=== PATIENT | female | born 1935 | race Caucasian/White ===

== ENCOUNTER → 2016-11-23 | Outpatient (CLI) | payer MEDICARE, OTHER ==
[~2016-11-23] MED LIST: AMBIEN 10MG10 MG PO; AMBIEN 5MG TABLE5 MG PO; BACTRIM DS 8001 TAB PO; CALCIUM 600600 MG PO; CALCIUM600 M1 PO; COLACE 100100 MG/CAP; COLACE 100100 MG/CAP PO; CYMBALTA 20MG20 MG PO; DIFLUCAN200 MG PO; ETODOLAC; GLUCOSAMINE & C1 CA2 PO; INDERAL 10MG10 MG; INDERAL40 MG PO; ISOPTO ATROPINE15 ML SL; LEVAQUIN 5500 MG/TA1 PO; NORCO 325 MG-51 TAB; PERCOCET 325 MG1 TA2 PO; PERCOCET 5/321 UDTAB PO; PREDNISONE 2.52.5 MG PO; PREDNISONE 5MG5 MG; PREDNISONE 5MG5 MG PO; PRILOSEC10 MG; PROTONIX 40MG T40 MG PO; ROBINUL1 MG PO; TRANSDERM-0.5 MG/21 TD; TYLENOL 8 HR PO; TYLENOL ARTHRI650 M1 PO; VALIUM 5MG T5 MG/TAB PO; ZOFRAN8 MG PO; ZOLOFT 50MG50 MG PO; ZOVIRAX400 MG; ZOVIRAX400 MG PO; ZYLOPRIM 300MG300 MG PO
[2016-11-23 12:17] LABS: BASO % 0.3 % (0.0-2.0); GRAN # 4.1 (1.4-6.5); GRAN % 68.3 % (42.2-75.2); HEMATOCRIT 43.4 % (37.0-47.0); HEMOGLOBIN 14.2 g/dl (12.5-16.0); LYMPH % 16.9 % (20.0-51.0); MEAN CELL VOLUME 89 fl (80.0-100.0); MEAN CORPUSCULAR HEMOGLOBIN 29 pg (27.0-31.0); MEAN CORPUSCULAR HGB CONC 33 g/dl (33.0-37.0); MEAN PLATELET VOLUME 11.9 fl (7.4-10.4); MONO # 0.8 (0.1-0.6); MONO % 13.7 % (1.7-9.3); RED BLOOD COUNT 4.86 M/mm3 (4.10-5.30); REDCELL DISTRIBUTION WIDTH-CV 14.2 % (11.5-14.5); WHITE BLOOD COUNT 6.1 K/mm3 (4.8-10.8)
[2016-11-23 12:31] LABS: INR 1.1 (0.8-3.0); PROTHROMBIN TIME 11.9 SECONDS (9.7-12.8)
== END ==
LOC: COL.LAB 11:11
PROVIDERS: Internal Medicine Gastroenterology
DX: R63.3 Feeding difficulties (principal); Z85.038 Personal history of other malignant neoplasm of large intestine; R13.12 Dysphagia, oropharyngeal phase

== ENCOUNTER 2016-11-26 07:07 | Observation (INO) | payer MEDICARE, OTHER ==
[~2016-11-26] VITALS: Ht 167.6 cm; Wt 58.8 kg
[2016-11-26] VITALS (11 sets, daily range): BP systolic 119–151; BP diastolic 40–81; PULSE 50–105; TEMP 98.1–99.9
[2016-11-26] MEDS ORDERED: ROBINUL1 MG PO (08:27)
[2016-11-26] MEDS ORDERED: COLACE 100100 MG/CAP PO (08:34)
[2016-11-26] MEDS ORDERED: TYLENOL 8 HR PO (08:44)
[2016-11-26 12:32] LABS: GRAN # 5.7 (1.4-6.5); GRAN % 84.8 % (42.2-75.2); HEMATOCRIT 41.3 % (37.0-47.0); HEMOGLOBIN 13.2 g/dl (12.5-16.0); LYMPH # 0.7 (1.2-3.4); MEAN CELL VOLUME 91 fl (80.0-100.0); MEAN CORPUSCULAR HEMOGLOBIN 29 pg (27.0-31.0); MEAN CORPUSCULAR HGB CONC 32 g/dl (33.0-37.0); MEAN PLATELET VOLUME 11.1 fl (7.4-10.4); MONO # 0.3 (0.1-0.6); MONO % 4.8 % (1.7-9.3); RED BLOOD COUNT 4.56 M/mm3 (4.10-5.30); REDCELL DISTRIBUTION WIDTH-CV 14.5 % (11.5-14.5); WHITE BLOOD COUNT 6.7 K/mm3 (4.8-10.8)
[2016-11-26 12:44] LABS: INR 1.1 (0.8-3.0); PROTHROMBIN TIME 12.6 SECONDS (9.7-12.8)
[2016-11-26 12:45] LABS: PLATELET COUNT 113 K/mm3 (130-400)
[2016-11-27 02:50] VITALS: BP 109/47; PULSE 76; TEMP 98.1
[2016-11-27 07:13] VITALS: BP 147/46; PULSE 65; TEMP 97.9
[2016-11-27 09:38] VITALS: BP 121/46; PULSE 53; TEMP 98.2
== END 2016-11-27 12:28 | disposition home health service (06) ==
LOC: SDCO 07:07 → SURG 07:21 → SDCO 08:30 → SURG 10:27 → SDCO 10:27 → SURG 11-27 12:28
PROVIDERS: Internal Medicine Gastroenterology
DX: G12.21 Amyotrophic lateral sclerosis (principal); R47.1 Dysarthria and anarthria; R13.10 Dysphagia, unspecified; K29.30 Chronic superficial gastritis without bleeding; E11.9 Type 2 diabetes mellitus without complications; M17.0 Bilateral primary osteoarthritis of knee; G47.00 Insomnia, unspecified; M47.9 Spondylosis, unspecified; M35.3 Polymyalgia rheumatica; Z85.038 Personal history of other malignant neoplasm of large intestine
CPT/HCPCS: G0378; G0379; G8996-GN; G8997-GN; J0690; J1720; J2250; J2704; J7030; J7120; J7512

== ENCOUNTER 2018-01-01 09:00 | Outpatient (RCR) | payer MEDICARE | END 2018-04-01 | disposition home or self-care (01) | LOC: WSST | DX: R47.1 Dysarthria and anarthria (principal); G12.21 Amyotrophic lateral sclerosis | CPT/HCPCS: G8996-GN; G8997-GN ==

== ENCOUNTER → 2018-01-07 | Outpatient (CLI) | payer MEDICARE, OTHER | LOC: COL.RAD 08:30 | DX: R13.10 Dysphagia, unspecified (principal); G12.21 Amyotrophic lateral sclerosis; R47.1 Dysarthria and anarthria ==

== ENCOUNTER 2018-05-31 21:22 | Emergency (ER) | payer MEDICARE ==
[~2018-05-31] VITALS: Ht 165.1 cm; Wt 55.5 kg
[~2018-05-31 21:22] MED LIST changes: +AMITRIPTYLINE H25 M1 PO
[2018-05-31 21:29] VITALS: PULSE 64
[2018-05-31] MEDS ORDERED: OSCAL 500 TAB500 MG PO (21:43)
[2018-05-31] MEDS ORDERED: CEPHALEXIN500 M1 PO (22:57)
[2018-05-31 23:15] VITALS: BP 158/68
== END 2018-05-31 23:15 | disposition home or self-care (01) ==
LOC: COL.ER 21:22
DX: S09.90XA Unspecified injury of head, initial encounter (principal); S01.01XA Laceration without foreign body of scalp, initial encounter; Z23 Encounter for immunization; W18.39XA Other fall on same level, initial encounter; Y92.009 Unspecified place in unspecified non-institutional (private) residence as the place of occurrence of the external cause

== ENCOUNTER → 2018-07-02 | Outpatient (CLI) | payer MEDICARE, OTHER ==
[~2018-07-02] MED LIST changes: +CEPHALEXIN500 M1 PO; +OSCAL 500 TAB500 MG PO
== END ==
LOC: COL.RAD 11:54
DX: S02.81XA Fracture of other specified skull and facial bones, right side, initial encounter for closed fracture (principal); M47.812 Spondylosis without myelopathy or radiculopathy, cervical region; G12.21 Amyotrophic lateral sclerosis; I65.23 Occlusion and stenosis of bilateral carotid arteries; E04.1 Nontoxic single thyroid nodule; W19.XXXA Unspecified fall, initial encounter; Z95.828 Presence of other vascular implants and grafts

== ENCOUNTER → 2018-11-20 | Outpatient (CLI) | payer MEDICARE, OTHER ==
[2018-11-20 18:26] LABS: COLLECTION METHOD CLEAN CATCH
[2018-11-20 19:11] LABS: AMORPHOUS CRYSTAL Present /uL; PH 7 (5-8); SQUAMOUS EPITHELIAL 0-2 /hpf; URINE APPEARANCE Hazy; URINE BACTERIA None Seen /hpf; URINE BILIRUBIN Negative (NEGATIVE); URINE BLOOD Negative (NEGATIVE); URINE COLOR Yellow; URINE GLUCOSE Negative (NEGATIVE); URINE KETONE Negative (NEGATIVE); URINE LEUKOCYTE ESTERASE Negative (NEGATIVE); URINE NITRATE Negative (NEGATIVE); URINE PROTEIN(semi-quant) Negative (NEGATIVE); URINE UROBILINOGEN Negative (NEGATIVE)
== END ==
LOC: ZCOL.LAB 17:30
PROVIDERS: Family Medicine
DX: Z01.89 Encounter for other specified special examinations (principal)

== ENCOUNTER → 2018-12-03 | Outpatient (CLI) | payer MEDICARE | LOC: COL.RAD 13:39 | DX: M19.011 Primary osteoarthritis, right shoulder (principal); S22.080A Wedge compression fracture of T11-T12 vertebra, initial encounter for closed fracture; M50.31 Other cervical disc degeneration, high cervical region; M51.36 Other intervertebral disc degeneration, lumbar region ==

== ENCOUNTER 2019-01-02 08:10 | Inpatient (IN) | payer MEDICARE ==
[~2019-01-02] VITALS: Ht 162.6 cm; Wt 62.3 kg
[2019-01-02] VITALS (215 sets, daily range): BP systolic 102–124; BP diastolic 55–70; PULSE 106–118; TEMP 98.1; O2SAT 88–100
[2019-01-02] MEDS ORDERED: TYLENOL SU650 MG/SUP RC (08:52)
[2019-01-02] MEDS ORDERED: ASPERCREME85G TP (09:08)
[2019-01-02] MEDS ORDERED: BUSPIRONE HCL7.5 MG PO (09:09)
[2019-01-02] MEDS ORDERED: DULCOLAX S10 MG/SUPP RC (09:09)
[2019-01-02] MEDS ORDERED: SILACE150 MG/15 PEG ×2 (09:11)
[2019-01-02] MEDS ORDERED: IMODIUM 2MG CAPS2 MG PO (09:15)
[2019-01-02] MEDS ORDERED: GOOD NEIGH1200 MG/15 PEG (09:16)
[2019-01-02] MEDS ORDERED: KEPPRA250 MG PO (09:16)
[2019-01-02] MEDS ORDERED: MIRALAX PA17 GM/Dose PEG (09:17)
[2019-01-02] MEDS ORDERED: ALMACONE 360 M360 ML PEG (09:17)
[2019-01-02] MEDS ORDERED: INDERAL40 MG PO (09:18)
[2019-01-02] MEDS ORDERED: ZOLOFT 100MG100 MG PO (09:18)
[2019-01-02] MEDS ORDERED: PREDNISONE 2.52.5 MG PO (09:18)
[2019-01-02] MEDS ORDERED: DESYREL 50MG50 MG PO (09:19)
[2019-01-02] MEDS ORDERED: TYLENOL 325MG325 MG PO (09:19)
[2019-01-02 09:26] LABS: HEMATOCRIT 41.9 % (37.0-47.0); HEMOGLOBIN 14.5 g/dl (12.5-16.0); MEAN CELL VOLUME 84 fl (80.0-100.0); MEAN CORPUSCULAR HEMOGLOBIN 29 pg (27.0-31.0); MEAN CORPUSCULAR HGB CONC 35 g/dl (33.0-37.0); MEAN PLATELET VOLUME 13.1 fl (7.4-10.4); RED BLOOD COUNT 5.02 M/mm3 (4.10-5.30); REDCELL DISTRIBUTION WIDTH-CV 14.9 % (11.5-14.5)
[2019-01-02 09:28] LABS: PLATELET COUNT 287 K/mm3 (130-400)
[2019-01-02 09:34] LABS: ALBUMIN 3.8 gm/dL (3.5-5.0); BILIRUBIN,TOTAL 0.9 mg/dL (0.0-1.0); CALCIUM 9.5 mg/dL (8.4-10.2); CREATININE, serum 0.52 mg/dL (0.52-1.25); MAGNESIUM 1.7 mg/dL (1.6-2.3); POTASSIUM 4.2 mmol/L (3.4-5.0); TOTAL PROTEIN 7.1 gm/dL (6.4-8.2)
[2019-01-02 09:46] LABS: COLLECTION METHOD CLEAN CATCH
[2019-01-02 09:46] LABS: TROPONIN-I 0.019 ng/mL (0.000-0.035)
[2019-01-02 09:55] LABS: BAND 1 % (0-10); LYMPHOCYTE 4 % (20.0-51.0); METAMYELOCYTE 1 % (0-0); NEUTROPHILS 79 % (42.0-75.2); PLATELET ESTIMATE NORMAL (NORMAL)
[2019-01-02 10:08] LABS: MUCOUS Present /lpf; PH 5 (5-8); SQUAMOUS EPITHELIAL None Seen /hpf; URINE APPEARANCE Clear; URINE BACTERIA None Seen /hpf; URINE BILIRUBIN Negative (NEGATIVE); URINE BLOOD Negative (NEGATIVE); URINE COLOR Amber; URINE GLUCOSE Negative (NEGATIVE); URINE KETONE Negative (NEGATIVE); URINE LEUKOCYTE ESTERASE Negative (NEGATIVE); URINE NITRATE Negative (NEGATIVE); URINE PROTEIN(semi-quant) 2+ (NEGATIVE); URINE UROBILINOGEN >=4.0 mg/dL (NEGATIVE)
[2019-01-02 12:44] LABS: GASTROCCULT POSITIVE; pH GASTRIC CONTENTS 4
[2019-01-02 15:10] LABS: HEMATOCRIT 37.2 % (37.0-47.0); MEAN CELL VOLUME 86 fl (80.0-100.0); MEAN CORPUSCULAR HGB CONC 34 g/dl (33.0-37.0); MEAN PLATELET VOLUME 12.2 fl (7.4-10.4); RED BLOOD COUNT 4.33 M/mm3 (4.10-5.30); REDCELL DISTRIBUTION WIDTH-CV 15.1 % (11.5-14.5)
[2019-01-02 15:15] LABS: HEMOGLOBIN 12.5 g/dl (12.5-16.0); MEAN CORPUSCULAR HEMOGLOBIN 29 pg (27.0-31.0)
[2019-01-02 15:16] LABS: PLATELET COUNT 31 K/mm3 (130-400)
[2019-01-02 15:40] LABS: BASO % 0.1 % (0.0-2.0); EOS # 0.4 (0.0-0.7); EOS % 1.9 % (0-4.0); GRAN # 17.7 (1.4-6.5); GRAN % 75.2 % (42.2-75.2); HEMATOCRIT 38.6 % (37.0-47.0); HEMOGLOBIN 13.1 g/dl (12.5-16.0); LYMPH # 1.2 (1.2-3.4); LYMPH % 5.1 % (20.0-51.0); MEAN CELL VOLUME 85 fl (80.0-100.0); MEAN CORPUSCULAR HEMOGLOBIN 29 pg (27.0-31.0); MEAN CORPUSCULAR HGB CONC 34 g/dl (33.0-37.0); MEAN PLATELET VOLUME 10.7 fl (7.4-10.4); MONO # 3.8 (0.1-0.6); MONO % 16.3 % (1.7-9.3); RED BLOOD COUNT 4.54 M/mm3 (4.10-5.30); REDCELL DISTRIBUTION WIDTH-CV 15.2 % (11.5-14.5)
[2019-01-02 15:49] LABS: PLATELET COUNT 34 K/mm3 (130-400)
[2019-01-02 17:02] LABS: INR 1.1 (0.8-3.0)
[2019-01-02 17:04] LABS: PARTIAL THROMBOPLASTIN TIME 27.1 SECONDS (26.0-37.0)
[2019-01-02 17:16] LABS: ARTERIAL BLD GAS TCO2 CT 24.5; ARTERIAL BLOOD GAS BASE EXCESS 0.5 (-2-2); ARTERIAL BLOOD GAS HCO3 23.5 meq/L (22-26); ARTERIAL BLOOD GAS pH 7.47 (7.35-7.45)
[2019-01-02 17:17] LABS: ARTERIAL BLOOD GAS PO2 157.9 mmHg (80-100)
[2019-01-02] MEDS ORDERED: ZOFRAN 4MG T4 MG/TAB PEG (18:35)
--- NOTE | 2019-01-02 19:30 | NUR ---
REPORT RECEIVED AT BEDSIDE FROM FLAQUITA MENDEZ. LINES AND MEDS REVIEWED.
--- NOTE | 2019-01-02 20:00 | NUR ---
SEIZURE PADS AND SCDS ON. PERIPHERAL IV DISCONTINUED PT HAS ERIC PICC LINE.
--- NOTE | 2019-01-02 22:00 | NUR ---
PT OFF OF OXYGEN AND NOW AT ROOM AIR. O2 SAT AT 100%. NO SIGNS OF DISTRESS NOTED.
[2019-01-02 22:09] LABS: HEMOGLOBIN 11.9 g/dl (12.5-16.0); MEAN CELL VOLUME 86 fl (80.0-100.0); MEAN CORPUSCULAR HEMOGLOBIN 29 pg (27.0-31.0); MEAN CORPUSCULAR HGB CONC 34 g/dl (33.0-37.0); MEAN PLATELET VOLUME 11.8 fl (7.4-10.4); PLATELET COUNT 79 K/mm3 (130-400); RED BLOOD COUNT 4.11 M/mm3 (4.10-5.30); REDCELL DISTRIBUTION WIDTH-CV 15.3 % (11.5-14.5)
[2019-01-02 22:11] LABS: HEMATOCRIT 35.2 % (37.0-47.0)
--- NOTE | 2019-01-02 22:40 | NUR ---
DR. BELL UPDATED BY THIS RN VIA PHONE CALL. PT'S PLATELETS BACK TO 79 FROM [phone]. NO NEW ORDERS RECEIVED AT THIS TIME, WILL CONTINUE TO MONITOR.
[2019-01-03] VITALS (390 sets, daily range): BP systolic 109–145; BP diastolic 42–66; PULSE 81–97; TEMP 97.4–98.9; O2SAT 72–100
[2019-01-03 05:32] LABS: HEMATOCRIT 28.6 % (37.0-47.0); MEAN CELL VOLUME 88 fl (80.0-100.0); MEAN CORPUSCULAR HEMOGLOBIN 29 pg (27.0-31.0); MEAN CORPUSCULAR HGB CONC 33 g/dl (33.0-37.0); RED BLOOD COUNT 3.25 M/mm3 (4.10-5.30); REDCELL DISTRIBUTION WIDTH-CV 15.3 % (11.5-14.5)
[2019-01-03 05:35] LABS: HEMOGLOBIN 9.5 g/dl (12.5-16.0)
--- NOTE | 2019-01-03 05:36 | NUR ---
RECEIVED A CRITICAL LAB VALUE, PLATELET AT 48. E CARE NOTIFIED. NO NEW ORDERS AT THIS TIME.
[2019-01-03 05:38] LABS: ALBUMIN 2.6 gm/dL (3.5-5.0); BILIRUBIN,TOTAL 0.4 mg/dL (0.0-1.0); CALCIUM 8.1 mg/dL (8.4-10.2); CREATININE, serum 0.44 mg/dL (0.52-1.25); MAGNESIUM 1.8 mg/dL (1.6-2.3); POTASSIUM 3.3 mmol/L (3.4-5.0); TOTAL PROTEIN 5.1 gm/dL (6.4-8.2)
--- NOTE | 2019-01-03 07:30 | NUR ---
INITIAL ASSESSMENT COMPLETED. PATIENT'S EYES ARE OPEN IN BED AND SHE CAN ANSWER SIMPLE YES/NO QUESTIONS.
[2019-01-03 08:48] LABS: PLATELET COUNT 143 K/mm3 (130-400)
--- NOTE | 2019-01-03 09:45 | NUR ---
PEG TUBE DISCONNECTED FROM DEPENDENT DRAIN PER DR. JONES ORDERS. RESIDUAL WILL BE CHECKED EVERY 4 HOURS.
[2019-01-03 09:49] LABS: BAND 2 % (0-10); LYMPHOCYTE 26 % (20.0-51.0); NEUTROPHILS 65 % (42.0-75.2); PLATELET ESTIMATE DECREASED (NORMAL)
[2019-01-03 13:33] LABS: MEAN CELL VOLUME 88 fl (80.0-100.0); MEAN CORPUSCULAR HGB CONC 33 g/dl (33.0-37.0); MEAN PLATELET VOLUME 11.2 fl (7.4-10.4); RED BLOOD COUNT 3.24 M/mm3 (4.10-5.30); REDCELL DISTRIBUTION WIDTH-CV 15.5 % (11.5-14.5)
[2019-01-03 13:45] LABS: HEMATOCRIT 28.6 % (37.0-47.0); HEMOGLOBIN 9.5 g/dl (12.5-16.0); MEAN CORPUSCULAR HEMOGLOBIN 29 pg (27.0-31.0); PLATELET COUNT 142 K/mm3 (130-400)
--- NOTE | 2019-01-03 14:50 | NUR ---
NO RESIDUAL NOTED TO PEG TUBE.
--- NOTE | 2019-01-03 15:00 | NUR ---
REPORT CALLED TO FLAQUITA MORELOS ON SURGICAL. PATIENT WILL BE TAKEN BY BED TO ROOM 344.
--- NOTE | 2019-01-03 15:31 | NUR ---
Plan is to return to [facility] unless otherwise specified by Dr. VENUS louie with family while patient slept. Family reports that the patient uses a motorized wheel chair. PCP is Dr. Velez. Medications obtained through [facility]. Will continue to follow.
--- NOTE | 2019-01-03 16:52 | NUR ---
Pt was transfered to room 344 from ICU. She is alert and non-verbal, uses whiteboard for communication. She denies pain. IVF are infusing into right upper arm PICC line. Roberts cath to DD noted. Pt was oriented to room and to staff. Call light is within reach. Bed alarm on.
[2019-01-04] VITALS: BP 112/46; PULSE 71; TEMP 98
[2019-01-04 04:32] VITALS: BP 131/62; PULSE 84; TEMP 98.6
--- NOTE | 2019-01-04 05:40 | NUR ---
Patient has rested intermittently overnight. Patient is alert and partially oriented, has required reorientation overnight, appears to reorient easily. PEG tube residual checks continue to return 0ml with Q4 checks. Patient has had no nausea, did require a PRN pain medicaiton dose overnight. IVF continue to infuse per order. Roberts catheter remains in place. No further needs at this time, call light within reach.
[2019-01-04 07:27] LABS: BASO % 0.1 % (0.0-2.0); EOS # 0.1 (0.0-0.7); EOS % 0.9 % (0-4.0); GRAN # 3.6 (1.4-6.5); GRAN % 52.7 % (42.2-75.2); LYMPH % 29.8 % (20.0-51.0); MEAN CELL VOLUME 89 fl (80.0-100.0); MEAN CORPUSCULAR HGB CONC 32 g/dl (33.0-37.0); MEAN PLATELET VOLUME 10.5 fl (7.4-10.4); MONO % 15.2 % (1.7-9.3); RED BLOOD COUNT 2.79 M/mm3 (4.10-5.30); REDCELL DISTRIBUTION WIDTH-CV 15.4 % (11.5-14.5)
[2019-01-04 07:40] LABS: HEMATOCRIT 24.9 % (37.0-47.0); MEAN CORPUSCULAR HEMOGLOBIN 29 pg (27.0-31.0)
[2019-01-04 07:41] LABS: PLATELET COUNT 128 K/mm3 (130-400)
[2019-01-04 07:48] LABS: CREATININE, serum 0.4 mg/dL (0.52-1.25)
[2019-01-04 07:50] LABS: POTASSIUM 2.8 mmol/L (3.4-5.0)
--- NOTE | 2019-01-04 08:29 | NUR ---
Pt is awake and alert, slightly confused. She is non-verbal and communicates via white boards. IVF are infusing into right upper arm PICC line. Roberts cath draining clear yellow urine without difficulty. PEG tube had 10 mL of light-green gastric fluid residual. Oral care provided. Repositioned at this time. Bed alarm on.
[2019-01-04 08:31] VITALS: BP 117/67; PULSE 71; TEMP 98.1
--- NOTE | 2019-01-04 11:48 | NUR ---
Pt was given PRN tylenol suppository for generalized aches and pains. Medications restarted and given per PEG tube without difficulty. Pt also repositioned at this time. Family at bedside, updated on plan of care by Dr. Page.
[2019-01-04 12:21] VITALS: BP 120/51; PULSE 70; TEMP 97.9
--- NOTE | 2019-01-04 16:00 | NUR ---
Tube feeds started at this time per PEG. Original order for bolus feedings TID, but Osmolite is only availabe in continuous feeding bottle. denise Montenegro notified and confirmed this was okay. Feedings started at 15 ml/hr.
[2019-01-04 16:27] VITALS: BP 112/33; PULSE 73; TEMP 98.9
--- NOTE | 2019-01-04 17:41 | NUR ---
Pt's blood sugar found to be 60. Pt still awake and alert, conversing via whiteboard. Pt was given dextrose via IV push per hypoglycemic protocol. Will reassess blood sugar
--- NOTE | 2019-01-04 18:23 | NUR ---
Blood sugar rechecked, 125
[2019-01-04 19:46] VITALS: BP 126/54; PULSE 76; TEMP 98.8
--- NOTE | 2019-01-04 20:00 | NUR ---
Patient in bed resting. Awake and alert. Communicates via white board. IV fluids infusing via pump to ERIC PICC. PICC without complications. Tube feeding infusing via pump. Residual of 5ml of davis fluid. Medications administered via PEG tube. Patient repositioned. Denies further needs at this time.
[2019-01-05 00:04] VITALS: BP 138/46; PULSE 67; TEMP 98.1
[2019-01-05 03:41] VITALS: BP 168/61; PULSE 77; TEMP 98.4
--- NOTE | 2019-01-05 05:58 | NUR ---
Patient has rested intermittently through the night. Passing gas this AM. Roberts maintained to dependent drainage with clear yellow urine present. Intermittently confused. Communication via whiteboard. Patient refuses to wear SCDs through the night. PEG tube with 5ml of davis residual this AM. Tube feeding through the night with kangaroo pump. PICC to ERIC without complications. Will report off to day shift. Bed alarm on, call light in reach.
[2019-01-05 06:20] LABS: MEAN CELL VOLUME 88 fl (80.0-100.0); MEAN CORPUSCULAR HGB CONC 33 g/dl (33.0-37.0); MEAN PLATELET VOLUME 10.8 fl (7.4-10.4); RED BLOOD COUNT 3.09 M/mm3 (4.10-5.30); REDCELL DISTRIBUTION WIDTH-CV 14.9 % (11.5-14.5)
[2019-01-05 06:23] LABS: HEMATOCRIT 27.1 % (37.0-47.0); HEMOGLOBIN 8.9 g/dl (12.5-16.0); MEAN CORPUSCULAR HEMOGLOBIN 29 pg (27.0-31.0)
[2019-01-05 06:28] LABS: PLATELET COUNT 122 K/mm3 (130-400)
[2019-01-05 06:36] LABS: CALCIUM 8.3 mg/dL (8.4-10.2); CREATININE, serum 0.36 mg/dL (0.52-1.25); POTASSIUM 3.4 mmol/L (3.4-5.0)
[2019-01-05 07:20] LABS: EOSINOPHIL 2 % (0-4); LYMPHOCYTE 29 % (20.0-51.0); MYELOCYTE 2 % (0-0); NEUTROPHILS 55 % (42.0-75.2); PLATELET ESTIMATE NORMAL (NORMAL)
[2019-01-05 08:55] VITALS: BP 117/43; PULSE 56; TEMP 97.6
--- NOTE | 2019-01-05 09:49 | NUR ---
Patient has been restless in bed. Drake Gaspar & this nurse provided full bed bath, linen chamged, oral care, lai care. Patient seemed to rest comfortably for a little while lying on her right side. She appears restless again at this time, try to comfort her and communicate using her white board. Picc to RUE-Iv antibioitcs & k+ replacement per orders. She does not like wearing the Scds. She remains NPo. When asked about nausea she shakes head no. Her abdomen soft, but distended. Peg tube feedings per orders, spoke with Moni engle to confirm & verify. New gauze dressing to Peg tube & cleanses around the site. minmal gastric return noted when given her meds crushed through tube. Will monitor closely.
--- NOTE | 2019-01-05 11:28 | NUR ---
Patient continues to be restless. Patient repositioned again & oral care provided. Tylenol suppository to try and provided any pain relief
[2019-01-05 11:31] VITALS: BP 116/76; PULSE 61; TEMP 98.1
--- NOTE | 2019-01-05 12:27 | NUR ---
rounded. Patient doing much better sitting up in the chair, she is less restless. Much more calm. Her daughter is showing her videos/pictures on her phone.
--- NOTE | 2019-01-05 14:10 | NUR ---
SW faxed update to [facility].
[2019-01-05 15:13] VITALS: BP 173/37; PULSE 69; TEMP 97.7
--- NOTE | 2019-01-05 16:00 | NUR ---
Patient resting in bed. Repositioned in bed. Tylenol supp. given for her restlessness. Her grand daughter at bedside. This is lifting the patients spirits.
--- NOTE | 2019-01-05 18:13 | NUR ---
Patient sitting up in chair, she was a very heavy 2 assist, but again seems more comfortable in the chair, less restless. Communication still difficult, not able to speak & hard to read her handwrinting at times. Cornelius mondragon.
[2019-01-05 20:25] VITALS: BP 146/58; PULSE 69; TEMP 98.5
--- NOTE | 2019-01-05 20:30 | NUR ---
Patient in chair resting. Alert and communicates with whiteboard. Tube feeding to PEG tube, minimal residual. Roberts to dependent drainage with clear yellow urine present. When asked if she would like to return to bed patient shakes head no. Repositioned patient in chair. Oral care provided. Chair alarm on. Denies pain or further needs at this time.
[2019-01-06 04:30] VITALS: BP 134/85; PULSE 82; TEMP 98.3
--- NOTE | 2019-01-06 06:24 | NUR ---
Patient has rested well through the night. Minimal needs. Roberts maintained to dependent drainage with clear yellow urine present. Tube feedings with 0ml of residual. Denies pain at this time. Will report off to day shift.
[2019-01-06 07:23] VITALS: BP 157/49; PULSE 77; TEMP 97.6
--- NOTE | 2019-01-06 10:15 | NUR ---
Patient alert, uses written communication. Abdomen soft, non distended, non tender. PEG in place and infusing nutrition. Bowel sounds active x4 quads. +Flatus. Roberts catheter patent and draining clear yellow urine. No c/o at this time.
[2019-01-06 11:21] VITALS: BP 98/76; PULSE 71; TEMP 97.7
--- NOTE | 2019-01-06 13:04 | NUR ---
SW attended clinical rounds. The patient is to tentatively discharge back to [facility] tomorrow, 01/07. VENUS contacted and faxed updates to Rhonda at [facility] and will continue to follow.
--- NOTE | 2019-01-06 15:19 | NUR ---
Initial visit; Patient needed assistance with information she attempted to write on a white board. Bottom Crane Operator was able to discern that she wanted a certain Manager Tax but wasn't able to reach him. Bottom Crane Operator will attempt to reach him again. Bottom Crane Operator will follow up with patient.
[2019-01-06 17:08] VITALS: BP 137/53; PULSE 49; TEMP 97.6
[2019-01-06 19:58] VITALS: BP 148/54; PULSE 58; TEMP 98.6
--- NOTE | 2019-01-06 20:00 | NUR ---
Patient in bed resting. Alert and communicating via whiteboard. Denies pain at this time. Refuses supper. Residual of 20ml clear fluid. Irrigated Peg tube with 30ml of water. Patient denies pain at this time. BLE elevated on pillows with heel protectors on . Patient repositioned for comfort. Denies further needs at this time.
[2019-01-07 00:18] VITALS: BP 116/73; PULSE 79; TEMP 98.4
--- NOTE | 2019-01-07 01:25 | NUR ---
Attempted to bladder scan patient. Has not voided in over 8 hrs since lai was removed. Patient denies feeling like she needs to void. Bladder scanner not working. Straight cathed patient and removed 250ml of clear nidia urine.
[2019-01-07 04:52] VITALS: BP 142/50; PULSE 80; TEMP 98.6
--- NOTE | 2019-01-07 05:25 | NUR ---
Patient has rested well through the night. Minimal needs. Denies pain at this time. Peg tube with 0ml of residual. Denies further needs at this time. Denies further needs at this time. Will report off to day shift.
[2019-01-07 08:15] LABS: MEAN CELL VOLUME 88 fl (80.0-100.0); MEAN CORPUSCULAR HGB CONC 33 g/dl (33.0-37.0); RED BLOOD COUNT 3.74 M/mm3 (4.10-5.30); REDCELL DISTRIBUTION WIDTH-CV 15.3 % (11.5-14.5)
[2019-01-07 08:22] LABS: HEMOGLOBIN 10.9 g/dl (12.5-16.0); MEAN CORPUSCULAR HEMOGLOBIN 29 pg (27.0-31.0)
[2019-01-07 08:24] LABS: MEAN PLATELET VOLUME 9.5 fl (7.4-10.4); PLATELET COUNT 211 K/mm3 (130-400)
[2019-01-07 08:27] LABS: CREATININE, serum 0.36 mg/dL (0.52-1.25); POTASSIUM 3.5 mmol/L (3.4-5.0)
[2019-01-07 08:31] VITALS: BP 144/81; PULSE 95; TEMP 97.5
[2019-01-07 08:33] LABS: CALCIUM 9.1 mg/dL (8.4-10.2)
[2019-01-07 08:34] LABS: BAND 3 % (0-10); EOSINOPHIL 1 % (0-4); LYMPHOCYTE 28 % (20.0-51.0); METAMYELOCYTE 2 % (0-0); MYELOCYTE 1 % (0-0); NEUTROPHILS 51 % (42.0-75.2); PLATELET ESTIMATE NORMAL (NORMAL)
--- NOTE | 2019-01-07 10:40 | NUR ---
PT UNABLE TO SWALLOW THICKENED LIQUIDS WITH OUT CHOKING. ATTEMPTED THICKENED H20 AND PT WAS NOT ABLE TO SWALLOW. MOUTH SWABS PROVIDED. TUBE FEEDING COMPLETE PER ORDERS. MALOX GIVEN FOR REFLUX. PT WAS HAVING TROUBLE AFTER TUBE FEEDING.
--- NOTE | 2019-01-07 10:52 | NUR ---
PT SITTING UP IN BED. BED BATH PROVIDED TO PATIENT. PT HAS BREIFS ON AND IS NOT INCONTINENT AT THAT TIME.
--- NOTE | 2019-01-07 10:59 | NUR ---
INDERAL NOT AVAILABLE, NOTIFIED PHARMACY AND ABDIRASHID SAID HE WILL NEED TO FIND SOME.
[2019-01-07 12:12] VITALS: BP 121/48; PULSE 100; TEMP 98.3
--- NOTE | 2019-01-07 13:45 | NUR ---
PATIENT UP TO RECLINER WITH MAX ASSIST X2. DAUGHTER HERE AND HAS DIETARY QUESTIONS. JARED NOTIFIED AND WILL ADDRESS CONCERNS.
--- NOTE | 2019-01-07 14:13 | NUR ---
VENUS and VENUS student attended clinical rounds. A tentative discharge date is 01/08. SW contacted and updated the patient's daughter. SW faxed updates to [facility]. SW to continue to follow.
--- NOTE | 2019-01-07 14:19 | NUR ---
PT TOLERATING CHAIR. DAUGHTER IN VISITING WITH PATEINT.
--- NOTE | 2019-01-07 15:23 | NUR ---
PT TO BE EVALUATED TOMMORROW BY SPEECH. PT ATTEMPTING TO EAT OATMEAL AND BANANNA WITH FAMILY ASSIST.
[2019-01-07 17:08] VITALS: BP 123/52; PULSE 62
[2019-01-07 20:56] VITALS: BP 119/58; PULSE 88; TEMP 98.5
--- NOTE | 2019-01-07 22:44 | NUR ---
PT RESTING IN BED ALERT WHEN AWAKE. REPORTING NO PAIN. PEG TUBE FLUSHED BEFORE AND AFTER MEDS. SHIFT ASSESSMENT COMPLETE, NO NEEDS AT THIS TIME. BED ALARM ON. CALL LIGHT IN REACH
[2019-01-08 01:00] VITALS: BP 100/45; PULSE 58; TEMP 98.7
--- NOTE | 2019-01-08 04:10 | NUR ---
pt signals no needs. turning pt Q2. PEG tube flushed before and after meds/feeding. PICC flushes well, blood return noted. SCD on. vitals stable. no needs at this time. call light inreach. bed alarm on
[2019-01-08 04:34] VITALS: BP 136/55; PULSE 67; TEMP 98.6
--- NOTE | 2019-01-08 05:51 | NUR ---
pt resting in bed. turned Q2. bed alarm on. call light in reach. pt scores a 0 on RFLACC pain scale. no needs at this time. call light in reach
--- NOTE | 2019-01-08 06:33 | NUR ---
report given to FLAQUITA Mcneill.
--- NOTE | 2019-01-08 07:02 | NUR ---
REPORT FROM EDWIN SAMS, PT IN BED SLEEPING. STUDENT NURSE [employer] WORKING WITH PATEINT THIS AM.
[2019-01-08 07:48] LABS: MEAN CELL VOLUME 89 fl (80.0-100.0); MEAN CORPUSCULAR HEMOGLOBIN 29 pg (27.0-31.0); MEAN CORPUSCULAR HGB CONC 33 g/dl (33.0-37.0); MEAN PLATELET VOLUME 11.8 fl (7.4-10.4); RED BLOOD COUNT 3.76 M/mm3 (4.10-5.30); REDCELL DISTRIBUTION WIDTH-CV 15.9 % (11.5-14.5)
[2019-01-08 07:57] LABS: CALCIUM 9.1 mg/dL (8.4-10.2); CREATININE, serum 0.36 mg/dL (0.52-1.25); POTASSIUM 3.9 mmol/L (3.4-5.0)
[2019-01-08 08:05] LABS: HEMATOCRIT 33.4 % (37.0-47.0)
[2019-01-08 08:06] LABS: PLATELET COUNT 254 K/mm3 (130-400)
[2019-01-08 08:11] VITALS: BP 127/47; PULSE 70; TEMP 97.8
[2019-01-08 09:32] LABS: LYMPHOCYTE 36 % (20.0-51.0); METAMYELOCYTE 2 % (0-0); MYELOCYTE 1 % (0-0); NEUTROPHILS 50 % (42.0-75.2); PLATELET ESTIMATE NORMAL (NORMAL)
[2019-01-08] MEDS ORDERED: PROTONIX40 MG/Pack PO (09:48)
[2019-01-08] MEDS ORDERED: CENA K20 MEQ/15 PO (09:50)
[2019-01-08 11:33] VITALS: BP 127/47; PULSE 70; TEMP 97.8
[2019-01-08 12:00] VITALS: BP 110/39; PULSE 58; TEMP 98
--- NOTE | 2019-01-08 13:27 | NUR ---
The patient is to discharge today, 01/08, back to [facility] for a skilled stay. Transportation was set for 1430, via [facility]. SW informed the patient's daughter and nurse. They were both in agreeance. VENUS also presented and explained the IM form to the patient's daughter. The patient's daughter verbalized understanding, signed, and she was provided a copy. No additional needs at this time.
--- NOTE | 2019-01-08 13:32 | NUR ---
Pt is currently sitting in recliner with , daughter and ST in room at this time. Pt is ready to prepare for D/C to [facility] when ST is done. Pt will use call light when ready to get dressed to leave facility. Primary nurse FLAQUITA Mcneill notified by this nurse of update and report off.
--- NOTE | 2019-01-08 13:52 | NUR ---
SPEECH THERAPY IN TO WORK WITH PATIENT AND FAMILY. RECOMMENDS NECTAR THICK LIQUIDS AND PUREED DIET.
--- NOTE | 2019-01-08 13:52 | NUR ---
REPORT CALLED TO FREDY HERNANDEZ LPN.
--- NOTE | 2019-01-08 14:54 | NUR ---
[facility] HERE TO TAKE PATIENT BACK TO SNF.
== END 2019-01-08 14:55 | DRG 871 ==
LOC: COL.ER 08:10 → ICU 10:55 → SURG 10:55
PROVIDERS: Emergency Medicine; Internal Medicine; Internal Medicine Pulmonary Disease; Physician Assistant; ADMIT Family Medicine
PROC: 0D9670Z Drainage of Stomach with Drainage Device, Via Natural or Artificial Opening (ICD-10-PCS; principal; 2019-01-02)
DX: A41.9 Sepsis, unspecified organism (principal); J96.01 Acute respiratory failure with hypoxia; J69.0 Pneumonitis due to inhalation of food and vomit; K29.61 Other gastritis with bleeding; G12.21 Amyotrophic lateral sclerosis; E87.1 Hypo-osmolality and hyponatremia; K56.51 Intestinal adhesions [bands], with partial obstruction; E87.2 Acidosis; Z66 Do not resuscitate; M35.3 Polymyalgia rheumatica; Z79.52 Long term (current) use of systemic steroids; Z85.030 Personal history of malignant carcinoid tumor of large intestine; Z85.6 Personal history of leukemia; E11.9 Type 2 diabetes mellitus without complications; G25.0 Essential tremor; R56.9 Unspecified convulsions; F41.8 Other specified anxiety disorders; D69.6 Thrombocytopenia, unspecified; K21.0 Gastro-esophageal reflux disease with esophagitis; E87.6 Hypokalemia; E86.0 Dehydration
CPT/HCPCS: 99223-AI; 99232-AI; 99233-AI; 99239; A4314; C1751; C9113; J1170; J1720; J1953; J2405; J2543; J3480; J7030; J7512; Q9967

== ENCOUNTER → 2019-03-29 | Outpatient (CLI) | payer MEDICARE ==
[~2019-03-29] MED LIST changes: +ALMACONE 360 M360 ML PEG; +ASPERCREME85G TP; +BUSPIRONE HCL7.5 MG PO; +CENA K20 MEQ/15 PO; +DESYREL 50MG50 MG PO; +DULCOLAX S10 MG/SUPP RC; +GOOD NEIGH1200 MG/15 PEG; +IMODIUM 2MG CAPS2 MG PO; +KEPPRA250 MG PO; +MIRALAX PA17 GM/Dose PEG; +PROTONIX40 MG/Pack PO; +SILACE150 MG/15 PEG; +TYLENOL 325MG325 MG PO; +TYLENOL SU650 MG/SUP RC; +ZOFRAN 4MG T4 MG/TAB PEG; +ZOLOFT 100MG100 MG PO
[2019-03-29 11:29] LABS: COLLECTION METHOD CLEAN CATCH
[2019-03-29 11:49] LABS: PH 7 (5-8); SQUAMOUS EPITHELIAL 0-2 /hpf; URINE APPEARANCE Clear; URINE BACTERIA None Seen /hpf; URINE BILIRUBIN Negative (NEGATIVE); URINE BLOOD Negative (NEGATIVE); URINE COLOR Yellow; URINE GLUCOSE Negative (NEGATIVE); URINE KETONE Negative (NEGATIVE); URINE LEUKOCYTE ESTERASE Negative (NEGATIVE); URINE NITRATE Negative (NEGATIVE); URINE PROTEIN(semi-quant) Negative (NEGATIVE); URINE RBC 0-2 /hpf; URINE UROBILINOGEN Negative (NEGATIVE)
== END ==
LOC: ZCOL.LAB 11:20
PROVIDERS: Family Medicine
DX: N39.0 Urinary tract infection, site not specified (principal)

== ENCOUNTER 2019-10-21 16:34 | Emergency (ER) | payer MEDICARE ==
[~2019-10-21] VITALS: Ht 162.6 cm; Wt 55.0 kg
[2019-10-21 16:45] VITALS: BP 152/83; TEMP 97.4
[2019-10-21 17:31] VITALS: PULSE 88
== END 2019-10-21 17:31 | disposition home or self-care (01) ==
LOC: COL.ER 16:34
DX: K94.23 Gastrostomy malfunction (principal); E11.9 Type 2 diabetes mellitus without complications; F32.9 Major depressive disorder, single episode, unspecified; K21.9 Gastro-esophageal reflux disease without esophagitis; G12.21 Amyotrophic lateral sclerosis; C92.00 Acute myeloblastic leukemia, not having achieved remission; Z79.52 Long term (current) use of systemic steroids

== ENCOUNTER 2019-12-14 11:48 | Emergency (ER) | payer MEDICARE ==
[~2019-12-14] VITALS: Ht 167.6 cm; Wt 55.0 kg
[2019-12-14 12:21] VITALS: BP 125/93; TEMP 97.9
[2019-12-14 15:21] VITALS: PULSE 82
== END 2019-12-14 15:21 | disposition home or self-care (01) ==
LOC: COL.ER 11:48
DX: K94.23 Gastrostomy malfunction (principal)